=== PATIENT | female | born 1985 | race American Indian/Alaskan Native ===

== ENCOUNTER 2020-03-01 00:25 | Emergency (ER) | payer MEDICAID ==
[2020-03-01] MEDS ORDERED: ZIPRASIDONE MESYLATE 20 MG VIAL IM ONE (02:59)
[2020-03-01] MEDS ORDERED: LORazepam 2 MG/ML VIAL ONE (03:51)
[2020-03-01] MEDS ORDERED: LORazepam 2 MG/ML VIAL IM ONE (03:54)
--- NOTE | 2020-03-01 04:37 | Emergency Department Report ---
<CARMEL DURONSTORMY - Last Filed: 03/01/20 04:32> ED Psych HPI - General Chief Complaint: Psych Stated Complaint: ALTERED MENTAL STATUS Time Seen by Provider: 03/01/20 00:33 Source: EMS Mode of arrival: Stretcher Limitations: Altered Mental Status - History of Present Illness Initial Comments: Patient is a 34-year-old female that presents with EMS for erratic behavior. EMS report received. EMS states the patient was outside of a gas station acting erratic and talking to herself. Patient was also yelling and throwing glass all over the gas station parking lot. Patient has a smell of alcohol. Patient had known psych history. It is unclear if the patient is on her psychiatric medications. MD Complaint: altered mental status -: Sudden History of same: Yes Quality: constant - Related Data Allergies Allergy/AdvReac Type Severity Reaction Status Date / Time No Known Allergies Allergy Unverified 03/01/20 02:58 ED Review of Systems Comment: Unobtainable due to pts medical conditions ED Past Medical Hx - Past Medical History Previous Medical History?: Yes Hx Hypertension: Yes Hx Psychiatric Treatment: Yes Additional medical history: Bipolar and Schzophernia - Surgical History Past Surgical History?: No - Family History Family history: no significant - Social History Smoking Status: Unknown if ever smoked Substance Use Type: None ED Physical Exam - General Limitations: Altered Mental Status General appearance: appears intoxicated, lethargic (But arousable. Patient ambulatory to bed.) - Head Head exam: Present: atraumatic, normocephalic - Eye Eye exam: Present: normal appearance, PERRL Pupils: Present: normal accommodation - ENT ENT exam: Present: mucous membranes dry - Neck Neck exam: Present: normal inspection - Respiratory Respiratory exam: Present: normal lung sounds bilaterally. Absent: respiratory distress, wheezes - Cardiovascular Cardiovascular Exam: Present: regular rate, normal rhythm, normal heart sounds. Absent: systolic murmur, diastolic murmur, rubs, gallop - GI/Abdominal GI/Abdominal exam: Present: soft, normal bowel sounds. Absent: distended, tenderness, guarding - Rectal Rectal exam: Present: deferred - Extremities Exam Extremities exam: Present: normal inspection - Back Exam Back exam: Present: normal inspection - Neurological Exam Neurological exam: Present: altered - Skin Skin exam: Present: warm, dry, intact, normal color. Absent: rash ED Course - Reevaluation(s) Reevaluation #1: Patient placed on ER hold after initial evaluation. 03/01/20 00:33 Reevaluation #2: patient answering questions more appropriately. Patient states she wants to leave. I instructed the patient that she will have to stay and have a mental health evaluation. 03/01/20 01:35 Reevaluation #3: Patient given Geodon for agitation. Patient answering more questions appropriately. 03/01/20 03:16 Reevaluation #4: I discussed case with sister. Sister states the patient has not slept for 6 days. Sister states that she has a psychiatrist and a therapist. Sister states that the patient is compliant with medications. 03/01/20 03:47 Reevaluation #5: Patient will be given Ativan. 03/01/20 04:01 Patient is medically cleared. Patient will remain in the ER as an ER hold. Patient's final disposition will come from our psychiatry or mental health team. 03/01/20 04:09 ED Medical Decision Making - Medical Decision Making Patient is a 34-year-old female that presents emergency room for erratic behavior, agitation and a mental health evaluation. Patient brought in by EMS. Patient had labs done which were essentially unremarkable. Patient is medically clear. Patient's final disposition will come from our psychiatry and mental health team. Patient had some agitation in the ER and the patient was given Geodon and Ativan. - Differential Diagnosis Insomnia, psychosis, agitation, erratic behavior, mental health evaluation ED Disposition Clinical Impression: History of schizophrenia, Agitation, Brief psychotic disorder Disposition: DC-01 TO HOME OR SELFCARE Is pt being admited?: No Does the pt Need Aspirin: No Condition: Stable Instructions: Schizophrenia Additional Instructions: OUTPATIENT MENTAL HEALTH RESOURCES [facility], [facility] Lavinia Rogel MD: [address], [address] [facility] [address] [place] [address] [place] [address] [facility]: [facility] [address] [place] [address] [place] [address] [phone] [facility]: [facility] Healthcare: [address] [place] [address] [address] [place] [address] [place] [address] [facility] [id number] [facility]: Pavel Crenshaw MD: [id number] [facility] [address] [facility] [id number] [facility]: [address] [place] [place] [address] [phone] [place] CRISIS AND ACCESS LINE: Referrals: PRIMARY CARE, [Primary Care Provider] - 2-3 Days Time of Disposition: 04:40 <LAITH CORONA - Last Filed: 03/01/20 13:22> ED Review of Systems ROS: Stated complaint: ALTERED MENTAL STATUS Other details as noted in HPI ED Course Vital Signs 03/01/20 03/01/20 03/01/20 00:57 01:11 10:24 Temperature 98.2 F 98.3 F 98.4 F Pulse Rate 101 H 107 H 107 H Respiratory 16 18 19 Rate Blood Pressure 179/108 149/105 152/97 [Left] O2 Sat by Pulse 99 97 98 Oximetry - Consultations Consultation #1: Mental health assessment note is as follows: 03/01/20 13:21 Patient Name: LAMAR PALOMINO Date of : 85 Patient Status: Emergency Emergency Provider: STORMY BURT III Date: 03/01/20 10:36 Initialization Date: 03/01/20 10:36 History of Present Illness - Reason for Consult Consult date: 03/01/20 Reason for consult: MHE Requesting physician: STORMY BURT III - History of Present Psychiatric Illness Per ED Provider: Patient is a 34-year-old female that presents with EMS for erratic behavior. EMS report received. EMS states the patient was outside of a gas station acting erratic and talking to herself. Patient was also yelling and throwing glass all over the gas station parking lot. Patient has a smell of alcohol. Patient had known psych history. It is unclear if the patient is on her psychiatric medications. PSYCH HPI Patient is a 34-year-old, single, unemployed currently on SSI -[place] female who resides with her sister past psychiatric history of bipolar, schizophrenia and depression and past medical history of hypertension dyslipidemia who presented to the ER with chief complaint of bizarre active behavior regurgitation. Patient says she does not remember what happened yesterday, she stated that currently she remembers was her sister telling her that they were going home, she woke up today in the hospital. She reports feeling great this morning says she used to see their people about 3 months ago but she no longer sees anything anymore, she feels ready to go home. Patient denies any depressed mood, SI HI, recent use of any psychoactive medication. Patient is seen this morning she appears calm, without any bizarre behavior or internal stimulus noted, sister also called facility requesting patient to be discharged because she has a follow-up with outpatient psychiatrist. PAST PSYCHIATRIC HISTORY Diagnoses: bipolar, schizophrenia and depression Suicide attempts or Self-harm behavior: None reported Prior psychiatric hospitalizations: None reported Substance Abuse history: Marijuana Previous psychiatric medications tried: Yes Outpatient treatment: Yes PAST MEDICAL HISTORY: hypertension dyslipidemia Family Psychiatric History: None reported or documented SOCIAL HISTORY Marital Status: Single Living Arrangements: With sister Employment Status: Unemployed on [facility] [employer] Access to guns/weapons: None reported Education: College dropout History of Abuse: None reported Legal History: None reported REVIEW OF SYSTEMS Constitutional: Negative for weight loss ENT: Negative for stridor Respiratory: Negative for cough or hemoptysis All other systems reviewed and are negative MENTAL STATUS EXAMINATION General Appearance and Behavior: Age appropriate, good hygiene, wearing appropriate clothes, good eye contact, cooperative polite with questioning. Cooperation: Participating/engaged Psychomotor Behavior: unremarkable and within normal limits Mood: Good Affect and affective range: congruent with mood Thought Process: Fluent/Logical, Thought Content: Within reality, Speech: Normal volume, Regular rate and rhythm, Intellectual Functioning: Average Suicidal Ideation: Denies SI Homicidal Ideation: Denies HI Impulse Control: Unimpaired Insight and Judgment: Normal insight and judgment, Memory: Normal, Attention: Normal, Orientation: Alert, oriented, ention impaired, Divided attention intact and Divided attention impaired Orientation: Alert, oriented, anxious, confused, delirious and demented Assessment and Plan - Psychiatric problem (1) History of schizophrenia Current Visit: Yes Status: Acute Treatment Plan No drug screen labs drawn to evaluate for concern for psychoactive substance induced mood disorder given resolution of symptoms within a 24-hour period. MEDICATIONS: Risks, benefits and alternatives of medications discussed with the patient, questions answered and consent obtained from patient. PSYCHOTHERAPY: Supportive psychotherapy provided MEDICAL: Per primary team DELIRIUM PRECAUTIONS: Please re-orient patient frequently, keep lights on during the day, and minimize benzodiazepines and opiates as these medications could worsen patient's confusion. UTILITY BILL COMPLAINTS INVESTIGATOR: DISPOSITION: Do Not Recommend acute inpatient psychiatric hospitalization at this time LEGAL STATUS: 1013 rescinded FOLLOW-UP: Will sign off Thank you for the consult. Please contact with any questions and/or concerns. ED Medical Decision Making - Medical Decision Making Patient has very brief psychotic disruption. Patient is stable at this time 1013 is been rescinded and she will be discharged home. Critical care attestation.: If time is entered above; I have spent that time in minutes in the direct care of this critically ill patient, excluding procedure time. ED Disposition Is pt being admited?: No Does the pt Need Aspirin: No
[2020-03-01 10:25] VITALS: BP 152/97
--- NOTE | 2020-03-01 10:36 | Consultation ---
History of Present Illness - Reason for Consult Consult date: 03/01/20 Reason for consult: MHE Requesting physician: STORMY BURT III - History of Present Psychiatric Illness Per ED Provider: Patient is a 34-year-old female that presents with EMS for erratic behavior. EMS report received. EMS states the patient was outside of a gas station acting erratic and talking to herself. Patient was also yelling and throwing glass all over the gas station parking lot. Patient has a smell of alcohol. Patient had known psych history. It is unclear if the patient is on her psychiatric medications. PSYCH HPI Patient is a 34-year-old, single, unemployed currently on SSI -[place] female who resides with her sister past psychiatric history of bipolar, schizophrenia and depression and past medical history of hypertension dyslipidemia who presented to the ER with chief complaint of bizarre active behavior regurgitation. Patient says she does not remember what happened yesterday, she stated that currently she remembers was her sister telling her that they were going home, she woke up today in the hospital. She reports feeling great this morning says she used to see their people about 3 months ago but she no longer sees anything anymore, she feels ready to go home. Patient denies any depressed mood, SI HI, recent use of any psychoactive medication. Patient is seen this morning she appears calm, without any bizarre behavior or internal stimulus noted, sister also called facility requesting patient to be discharged because she has a follow-up with outpatient psychiatrist. PAST PSYCHIATRIC HISTORY Diagnoses: bipolar, schizophrenia and depression Suicide attempts or Self-harm behavior: None reported Prior psychiatric hospitalizations: None reported Substance Abuse history: Marijuana Previous psychiatric medications tried: Yes Outpatient treatment: Yes PAST MEDICAL HISTORY: hypertension dyslipidemia Family Psychiatric History: None reported or documented SOCIAL HISTORY Marital Status: Single Living Arrangements: With sister Employment Status: Unemployed on SSI Access to guns/weapons: None reported Education: College dropout History of Abuse: None reported Legal History: None reported REVIEW OF SYSTEMS Constitutional: Negative for weight loss ENT: Negative for stridor Respiratory: Negative for cough or hemoptysis All other systems reviewed and are negative MENTAL STATUS EXAMINATION General Appearance and Behavior: Age appropriate, good hygiene, wearing appropriate clothes, good eye contact, cooperative polite with questioning. Cooperation: Participating/engaged Psychomotor Behavior: unremarkable and within normal limits Mood: Good Affect and affective range: congruent with mood Thought Process: Fluent/Logical, Thought Content: Within reality, Speech: Normal volume, Regular rate and rhythm, Intellectual Functioning: Average Suicidal Ideation: Denies SI Homicidal Ideation: Denies HI Impulse Control: Unimpaired Insight and Judgment: Normal insight and judgment, Memory: Normal, Attention: Normal, Orientation: Alert, oriented, ention impaired, Divided attention intact and Divided attention impaired Orientation: Alert, oriented, anxious, confused, delirious and demented Assessment and Plan - Psychiatric problem (1) History of schizophrenia Current Visit: Yes Status: Acute Treatment Plan No drug screen labs drawn to evaluate for concern for psychoactive substance induced mood disorder given resolution of symptoms within a 24-hour period. MEDICATIONS: Risks, benefits and alternatives of medications discussed with the patient, questions answered and consent obtained from patient. PSYCHOTHERAPY: Supportive psychotherapy provided MEDICAL: Per primary team DELIRIUM PRECAUTIONS: Please re-orient patient frequently, keep lights on during the day, and minimize benzodiazepines and opiates as these medications could worsen patient's confusion. TV HOST: DISPOSITION: Do Not Recommend acute inpatient psychiatric hospitalization at this time LEGAL STATUS: 1013 rescinded FOLLOW-UP: Will sign off Thank you for the consult. Please contact with any questions and/or concerns. Medications and Allergies Allergies Allergy/AdvReac Type Severity Reaction Status Date / Time No Known Allergies Allergy Unverified 03/01/20 02:58 Mental Status Exam - Vital signs Last Vital Signs Temp 98.4 F 03/01/20 10:24 Pulse 107 H 03/01/20 10:24 Resp 19 03/01/20 10:24 BP 152/97 03/01/20 10:24 Pulse Ox 98 03/01/20 10:24 Results All other labs normal. Assessment and Plan - Psychiatric problem (1) History of schizophrenia Current Visit: Yes Status: Acute
== END 2020-03-01 15:07 | disposition home or self-care (01) ==
LOC: ED 00:25 → EEVIPCON 00:25 → ED 15:07
DX: F28 Other psychotic disorder not due to a substance or known physiological condition (principal); F20.9 Schizophrenia, unspecified; R45.1 Restlessness and agitation; I10 Essential (primary) hypertension
CPT/HCPCS: 96372; 99284; J2060; J3486